=== PATIENT | male | born 2005 | race Two or more races ===

== ENCOUNTER → 2024-07-17 | Outpatient (CLI) | payer MEDICAID, SELFPAY ==
[2024-07-17 18:13] LABS: Free T4 (Free Thyroxine) 1.69 ng/dL (0.89-1.76); Thyroid Stimulating Hormone 1.43 uIU/mL (0.55-4.78)
== END | disposition home or self-care (01) ==
PROVIDERS: PCP Family Medicine; Referring Provider Dermatology; Visit Provider Dermatology
DX: L81.4 Other melanin hyperpigmentation (principal)
CPT/HCPCS: 36415; 84439; 84443